=== PATIENT | female | born 1960 | race Caucasian/White ===

== ENCOUNTER 2019-04-05 09:29 | Outpatient (CLI) | payer OTHER ==
[~2019-04-05] VITALS: Ht 157.5 cm; Wt 62.6 kg
[2019-04-05] MEDS ORDERED: CT SWABBABLE VALVE TRANS SET 1 EA INFUS.SET MC ONE (09:44)
[2019-04-05] MEDS ORDERED: IOHEXOL-350 100 ML VIAL IV ONE (09:44)
[2019-04-05] MEDS ORDERED: IV NS 0.9% 250 ML IV ONE (09:45)
[2019-04-05] MEDS ORDERED: NITROGLYCERIN 0.4 MG/TAB BOTTLE ONE (09:52)
[2019-04-05] MEDS ORDERED: METOPROLOL TARTRATE INJ 5 MG/5 ML AMPUL ONE (09:52)
[2019-04-05] MEDS ORDERED: IV NS 0.9% 500 ML IV PRN (10:00)
[2019-04-05] MEDS ORDERED: NITROGLYCERIN 4.9 GM SPRAY SL PRN (10:00)
[2019-04-05] MEDS ORDERED: METOPROLOL TARTRATE INJ 5 MG/5 ML AMPUL IVP PRN (10:00)
[2019-04-05 11:02] VITALS: BP 127/62
--- NOTE | 2019-04-05 11:03 | NUR ---
at 1000 pt walked in A/A/O consented to CTA cardiac. Metoprolol not given as heart rate met parameters. NTG not given as pt refused procedure completed at 1050, denies chest pain or SOB, VSS at 1100 pt dc'd ambulatory Addendum: 04/05/19 at 1112 by TONY CR RN Pt later refused both metoprolol and nitroglycerin medications. " I already have too much radiation exposure here".
== END 2019-04-05 14:00 | disposition home or self-care (01) ==
LOC: CATHLAB 09:29
PROVIDERS: ATTEND Internal Medicine Interventional Cardiology
DX: J43.2 Centrilobular emphysema (principal); I25.10 Atherosclerotic heart disease of native coronary artery without angina pectoris; I10 Essential (primary) hypertension; R94.31 Abnormal electrocardiogram [ECG] [EKG]
CPT/HCPCS: 75574; J7050; Q9967; J3490